=== PATIENT | male | born 1960 | race Caucasian/White ===

== ENCOUNTER 2020-12-05 04:27 | Inpatient (IN) | payer MEDICARE, MEDICAID, OTHER ==
[~2020-12-05] VITALS: Ht 167.6 cm; Wt 95.5 kg
[~2020-12-05 04:27] MED LIST: ATOR20TA65 MT; CLOZ100T31 MT; FERR325T6 MT; FLUT15.844 BOTHNSTRLS; LACT1CAP60 MT; METO-385 MT; OMEP20CA14 MT; RANI150C12 MT; SERT-112 MT; [UNRECOGNIZED DRUG - CODE] MM
[2020-12-05] MEDS ORDERED: ACETAMINOPHEN 325MG TABLET PO STA (04:34)
[2020-12-05] MEDS ORDERED: VANCOMYCIN 1 G PREMIX 200 ML IV ONE (04:45)
[2020-12-05] MEDS ORDERED: PIPERACILLIN/TAZ 3.375G PREMIX 50 ML IV ONE (04:45)
[2020-12-05] MEDS ORDERED: SODIUM CHLORIDE 0.9% 1000ML BAG (SEPSIS BOLUS) IV ONE (05:00)
[2020-12-05 05:11] LABS: HEMATOCRIT. 41.8 % (42.0-52.0); HEMOGLOBIN. 13.4 g/dL (14.0-18.0); MEAN CORPUSCULAR HEMOGLOBIN 29.5 pg (28.0-32.0); MEAN CORPUSCULAR VOLUME 92.2 fL (80.0-94.0); MEAN PLATELET VOLUME 6.7 fl (7.4-10.4); PLATELET 185 x1000/uL (130-400); RED BLOOD CELL COUNT 4.53 mill/uL (4.7-6.1)
[2020-12-05 05:14] LABS: CHLORIDE 96 mEq/L (98-107)
[2020-12-05 05:47] LABS: PLATELET ESTIMATE NORMAL
[2020-12-05 09:30] VITALS: BP 111/66
[2020-12-05] MEDS ORDERED: ACETAMINOPHEN 325MG TABLET PO PRN (10:15)
[2020-12-05] MEDS ORDERED: LORAZEPAM 2MG/ML CPJ IV PRN (10:15)
[2020-12-05] MEDS ORDERED: CEFTRIAXONE 1 G PREMIX 50 ML IV SCH (11:30)
[2020-12-05] MEDS: AZITHROMYCIN 250 MG TABLET PO SCH (11:49)
[2020-12-05] MEDS: CEFTRIAXONE 1,000 MG in DEXTROSE 5% WATER 50 ML IV SCH (11:50)
[2020-12-05 12:00] VITALS: BP 90/59
[2020-12-05] MEDS ORDERED: ONDANSETRON HCL 4MG/2ML INJ IV PRN (14:15)
[2020-12-05] MEDS ORDERED: ALBUTEROL 6.7GM HFA INHALER ORI PRN (14:15)
[2020-12-05 14:24] LABS: CLARITY URINE CLEAR (CLEAR); COLOR URINE YELLOW (YELLOW); KETONES URINE NEGATIVE (NEGATIVE); LEUKOCYTE ESTERASE URINE 3+ (NEGATIVE); NITRITE URINE POSITIVE (NEGATIVE); OCCULT BLOOD URINE NEGATIVE (NEGATIVE); PROTEIN URINE NEGATIVE (NEGATIVE); SPECIFIC GRAVITY URINE 1.007 (1.005-1.030); UROBILINOGEN URINE 0.2 E.U./dL (0.2-1.0)
[2020-12-05 16:00] VITALS: BP 106/56
[2020-12-05] MEDS: TAMSULOSIN HCL 0.4MG SR CAPSULE PO SCH (18:05)
[2020-12-05] MEDS: ENOXAPARIN 30MG/0.3ML SYR SUBCUT SCH (18:05)
[2020-12-05] MEDS: SODIUM CHLORIDE 0.9% 1,000 ML IV SCH (18:06)
[2020-12-05 20:32] VITALS: BP 99/49
[2020-12-05 22:00] VITALS: BP 107/63
[2020-12-05] MEDS ORDERED: THROAT LOZENGES-BENZOCAINE/MENTH/CETYLPYRD CL LOZENGES MM PRN (22:00)
[2020-12-05 23:47] VITALS: BP 111/61
[2020-12-06 04:30] VITALS: BP 107/63
[2020-12-06 05:31] VITALS: BP 107/63
[2020-12-06] MEDS: ENOXAPARIN 30MG/0.3ML SYR SUBCUT SCH ×2 (06:02→18:14)
[2020-12-06 06:47] LABS: BASOPHILS % 0.3 % (0.0-2.0); EOSINOPHILS % 1.7 % (0.0-5.0); HEMATOCRIT. 35.9 % (42.0-52.0); HEMOGLOBIN. 12.1 g/dL (14.0-18.0); LYMPHOCYTES % 9.1 % (20.0-50.0); MEAN CORPUSCULAR HEMOGLOBIN 30.7 pg (28.0-32.0); MEAN CORPUSCULAR VOLUME 91.5 fL (80.0-94.0); MEAN PLATELET VOLUME 7.2 fl (7.4-10.4); MONOCYTES % 8.3 % (2.0-8.0); NEUTROPHILS % 80.6 % (40.0-76.0); PLATELET 155 x1000/uL (130-400); RED BLOOD CELL COUNT 3.93 mill/uL (4.7-6.1); RED CELL DISTRIBUTION WIDTH 14.4 % (11.6-14.6)
[2020-12-06 08:49] VITALS: BP 102/54
[2020-12-06] MEDS: TAMSULOSIN HCL 0.4MG SR CAPSULE PO SCH (09:00)
[2020-12-06] MEDS: AZITHROMYCIN 250 MG TABLET PO SCH (09:00)
[2020-12-06] MEDS: CEFTRIAXONE 1,000 MG in DEXTROSE 5% WATER 50 ML IV SCH (12:00)
[2020-12-06 12:18] VITALS: BP 118/79
[2020-12-06] MEDS: SODIUM CHLORIDE 0.9% 1,000 ML IV SCH (13:30)
[2020-12-06 16:00] VITALS: BP 96/59
[2020-12-07 00:30] VITALS: BP 116/72
[2020-12-07 04:06] VITALS: BP 150/87
[2020-12-07] MEDS: ENOXAPARIN 30MG/0.3ML SYR SUBCUT SCH ×2 (05:40→19:00)
[2020-12-07 08:00] VITALS: BP 131/80
[2020-12-07] MEDS: TAMSULOSIN HCL 0.4MG SR CAPSULE PO SCH (08:12)
[2020-12-07] MEDS: AZITHROMYCIN 250 MG TABLET PO SCH ×2 (08:12→10:08)
[2020-12-07] MEDS: SODIUM CHLORIDE 0.9% 1,000 ML IV SCH (09:30)
[2020-12-07] MEDS ORDERED: MAGNESIUM 2 G PREMIX 50 ML IV SCH (10:00)
[2020-12-07] MEDS: CEFTRIAXONE 1,000 MG in DEXTROSE 5% WATER 50 ML IV SCH (12:00)
[2020-12-07 16:00] VITALS: BP 105/78
[2020-12-07 20:44] VITALS: BP 125/91
[2020-12-08] VITALS: BP 153/71
[2020-12-08] MEDS: SODIUM CHLORIDE 0.9% 1,000 ML IV SCH (05:30)
[2020-12-08] MEDS: ENOXAPARIN 30MG/0.3ML SYR SUBCUT SCH (07:00)
[2020-12-08 08:09] VITALS: BP 127/81
[2020-12-08] MEDS: TAMSULOSIN HCL 0.4MG SR CAPSULE PO SCH (08:18)
[2020-12-08] MEDS: AZITHROMYCIN 250 MG TABLET PO SCH (08:19)
[2020-12-08 12:00] VITALS: BP 112/70
[2020-12-08] MEDS: CEFTRIAXONE 1,000 MG in DEXTROSE 5% WATER 50 ML IV SCH (12:00)
[2020-12-08 15:58] LABS: BASOPHILS % 0.9 % (0.0-2.0); EOSINOPHILS % 2.6 % (0.0-5.0); HEMATOCRIT. 40.8 % (42.0-52.0); HEMOGLOBIN. 13.6 g/dL (14.0-18.0); LYMPHOCYTES % 23.2 % (20.0-50.0); MEAN CORPUSCULAR VOLUME 89.9 fL (80.0-94.0); MEAN PLATELET VOLUME 7.1 fl (7.4-10.4); MONOCYTES % 8.4 % (2.0-8.0); NEUTROPHILS % 64.9 % (40.0-76.0); PLATELET 217 x1000/uL (130-400); RED BLOOD CELL COUNT 4.54 mill/uL (4.7-6.1); RED CELL DISTRIBUTION WIDTH 14.2 % (11.6-14.6)
[2020-12-08 16:00] VITALS: BP 118/71
[2020-12-08 16:53] VITALS: BP 118/71
== END 2020-12-08 18:10 | DRG 871 ==
LOC: ER 04:27 → 7WST 05:26 → ENRESERV 07:30 → 6WST 21:52
PROVIDERS: ADMIT Internal Medicine; ATTEND Internal Medicine
DX: A41.9 Sepsis, unspecified organism (principal); R65.21 Severe sepsis with septic shock; J15.9 Unspecified bacterial pneumonia; E87.1 Hypo-osmolality and hyponatremia; J44.0 Chronic obstructive pulmonary disease with (acute) lower respiratory infection; N39.0 Urinary tract infection, site not specified; J98.11 Atelectasis; N17.9 Acute kidney failure, unspecified; D64.9 Anemia, unspecified; E83.42 Hypomagnesemia; E87.8 Other disorders of electrolyte and fluid balance, not elsewhere classified; F17.210 Nicotine dependence, cigarettes, uncomplicated; F20.9 Schizophrenia, unspecified; I12.9 Hypertensive chronic kidney disease with stage 1 through stage 4 chronic kidney disease, or unspecified chronic kidney disease; N18.9 Chronic kidney disease, unspecified; Z20.822 Contact with and (suspected) exposure to COVID-19; Z78.9 Other specified health status; Z86.73 Personal history of transient ischemic attack (TIA), and cerebral infarction without residual deficits; Z79.1 Long term (current) use of non-steroidal anti-inflammatories (NSAID); Z79.51 Long term (current) use of inhaled steroids; Z79.899 Other long term (current) drug therapy; Z88.8 Allergy status to other drugs, medicaments and biological substances
CPT/HCPCS: 36415; 71045; 76770; 80048; 80053; 81003; 82728; 83036; 83605; 83735; 83880; 84100; 84145; 84484; 85025; 86140; 93005; 99291; C1893; J0696; J1650; J2060; J2543; J3370; J3475; J7030; J7040; J7060; U0003